=== PATIENT | male | born 1970 | race African-American/Black ===

== ENCOUNTER → 2017-09-22 | Day surgery (SDC) | payer OTHER ==
[~2017-09-22] VITALS: Ht 167.6 cm; Wt 79.4 kg
[~2017-09-22] MED LIST: FLOMAX0.4 M1 PO; IBUPROFEN800 M1 PO; MIRALAX119 GM PO; PERCOCET 5-3251 EACH PO; ZOFRAN ODT4 M1 SL
--- NOTE | 2017-09-24 17:02 | RADIOLOGY REPORT ---
EXAMINATION: XR ABDOMEN CLINICAL INDICATION: Left ureteroscopy and retrograde ureterography. COMPARISON: CT images of abdomen pelvis, 09/19/2017 TECHNIQUE: Fluoroscopic imaging assistance provided to the operating room for Dr. Collins. Number of saved images: 4 Fluoroscopy time: 0.4 minutes. Dose: 8.63 mGy FINDINGS/IMPRESSION: Please refer to the operative report regarding specific intraoperative procedures performed. The patient has known bilateral renal calculi. No evidence of hydronephrosis. A filling defect within one of the interpolar calyces corresponds to a calculus seen on 09/19/2017.
--- NOTE | 2017-10-04 12:19 | Operative Report ---
Operative/Inv Procedure Report Surgery Date: 09/22/17 Name of Procedure: cystoscopy: left ureteroscopy with laser standby; basket extraction of stone. flurosocpopy-retrograde pyelogram. Pre-Operative Diagnosis: left coli with ureter stone. Post-Operative Diagnosis: same Estimated Blood Loss: scant Surgeon/Veterinary Technician Assistant: Leonidas Collins MD Anesthesia: laryngeal mask airway Specimens: left ureter stone Complications: none Condition: improved Operative/Procedure Note Note: The patient was taken to the operating room and placed on the OR table in supine position. With the patient awake, timeout was performed in order to confirm; correct patient, correct procedure, as well as correct laterality, and other pertinent desmond-operative information. After adequate anesthesia and antibiotics , the patient was then placed lithotomy stirrups, draped and prepped in the usual surgical fashion. A 22 Kosovan cystoscope sheath with 30 angle lens was inserted into the bladder without difficulty. Upon entering the bladder, the bladder was noted to be free of tumor free of stone. Both orifices were in their orthotopic position. The left ureter orifice was intubated with an tiger-tail catheter, and a retrograde pyelogram, with fluoroscopy, was performed. A 5 mm left ureter filling defect (c/w stone), with proximal hydronephrosis, was visualized. The tiger-tail catheter was removed, followed by insertion of a 0.035 Glidewire, which was advanced into the left renal pelvis without difficulty. Correct placement of the wire was confirmed on fluoroscopy. Leaving the Glidewire in place, an 8 Kosovan ureteral sheath dilator was rail-roaded over the Glidewire. Under fluroscopic visualization, the dilator was advanced slowly, and easily, into the bladder and subsequently into the left ureter without signficant difficulty. The ureteral dilator was then removed, leaving the Glidewire in place. The rigid micro-6 ureteroscope was then inserted under direct visualization following the Glidewire. The left orifice was intubated, and the ureteroscope was advanced into the distal left ureter. The stone was clearly visible. The Bard 0 tip basket was then inserted through the ureteroscope, and then deployed, and snaring the stone. Ureteroscope, along with the basket and stone were then gently extracted without difficulty. The stone was sent to pathology. The Glidewire was then removed without difficulty. The patient tolerated the procedure well, and was then taken to the recovery room in satisfactory condition. The patient is discharged home with pain medication, and antibiotics. The patient is to follow up in 1-2 weeks. Discharge Disposition: PACU CC: Leonidas Collins MD
== END ==
LOC: STS 07:00
DX: N13.2 Hydronephrosis with renal and ureteral calculous obstruction (principal)
CPT/HCPCS: 74000; 82355; J2250